=== PATIENT | female | born 1995 | race Hispanic/Latino ===

== ENCOUNTER 2019-09-03 18:32 | Inpatient (IN) | payer OTHER, SELFPAY ==
[2019-09-03] VITALS (12 sets, daily range): BP systolic 112–124; BP diastolic 46–71; PULSE 77–92; TEMP 36.2–36.9; BMI 41.1
--- NOTE | 2019-09-03 18:48 | WPDANESEPP ---
Anes - Eval Pre Procedure Procedure: Labor Epidural Date/Time: 09/03/19 18:48 Surgeon: Ahsan Preop Diagnosis: Abd pain with contractions Pre Op Diagnosis: Induction Patient Data Age: 24 Gender: F Height: Weight: Allergies Allergy/AdvReac Type Severity Reaction Status Date / Time No Known Allergies Allergy Verified 09/02/19 15:54 Home Medications Medication Instructions Recorded Confirmed Type PNV cmb#95-ferrous fumarate-FA 1 tablet PO DAILY 09/02/19 09/02/19 History [] ergocalciferol (vitamin D2) 1,250 mcg PO 2XW 09/02/19 09/02/19 History [Vitamin D2] insulin NPH isoph U-100 human 16 unit SUBCUT HS 09/02/19 09/02/19 History [Humulin N NPH U-100 Insulin] Patient hx anesthesia problems: none Family hx anesthesia problems: none PMFSH Past Medical History Medical History (Updated 09/03/19 @ 18:50 by Gray Castellanos CRNA) Gestational diabetes Obesity and not yet delivered in third trimester Surgical History Surgical History (Updated 09/03/19 @ 18:50 by Gray Castellanos CRNA) History of tonsillectomy Family History Family History Mother Hypertension Acid reflux Father Diabetes mellitus Social History Social History Smoking status: Never smoker Alcohol intake: never Substance use: never Spiritual care concerns: No Exam Day of Procedure 09/03/19 18:48 Patient weight: obese Airway: Mallampati scale class III Neurological: alert and oriented
[2019-09-03 19:17] LABS: Glucose Point of Care 97 (65-105)
[2019-09-03 19:20] LABS: Basophils Absolute Auto 0.1 K/mm3 (0.0-0.1); Basophils Percent Auto 0.5 % (0.2-1.2); Eosinophils Percent Auto 0.2 % (0-4.4); Hematocrit 34.7 % (37.0-47.0); Immature Granulocyte Absolute 0.03 K/mm3 (0.00-0.031); Immature Granulocyte Percent A 0.3 % (0-0.5); Lymphocytes Absolute Auto 1.15 K/mm3 (0.9-3.2); Lymphocytes Percent Auto 11.6 % (18.3-44.2); Mean Corpuscular HGB Conc 34.6 g/dl (32-36); Mean Corpuscular Hemoglobin 30.2 pg (26-34); Mean Corpuscular Volume 87.4 fl (80-100); Mean Platelet Volume 10.8 fl (7.4-10.4); Monocytes Absolute Auto 0.5 K/mm3 (0.1-0.6); Monocytes Percent Auto 5.2 % (2.6-8.5); Neutrophils Absolute Auto 8.2 K/mm3 (1.3-6.7); Neutrophils Percent Auto 82.2 % (45.5-73.1); Platelet Count Result 270 k/mm3 (150-375); Red Blood Count 3.97 M/mm3 (4.2-5.4); Red Cell Distribution Width 12.7 % (11.5-14.5); White Blood Count 9.9 K/mm3 (4.5-10.0)
--- NOTE | 2019-09-03 19:50 | LDADM ---
This patient, Fidelia Fisher, was admitted to Labor/Delivery/Recovery 102 on 09/03/19 at 18:32. Plans for labor, pain management and were discussed with patient. Patient/family oriented to hospital policies and general routines including ID bracelet, bed and alarms, visiting hours, pain management, procedures, bathroom and other care routines, personal items, smoking policy, room service/diet and guest tray routines, security routines, and visiting hours. Patient/Family are encouraged to report perceived risks to care and to ask questions if they do not understand what they are told or what they should do. See OBIX for further documentation.
[2019-09-03] MEDS: DINOPROSTONE 10 MG VAG INSERT VAGINAL (20:25)
[2019-09-03 22:51] LABS: Glucose Point of Care 78 (65-105)
[2019-09-04] VITALS (150 sets, daily range): BP systolic 74–139; BP diastolic 38–111; PULSE 52–99; RESP 18; TEMP 36.1–37.7; O2SAT 96–100
[2019-09-04 03:03] LABS: Glucose Point of Care 89 (65-105)
[2019-09-04 07:13] LABS: Glucose Point of Care 80 (65-105)
[2019-09-04 07:19] LABS: Rapid Plasma Reagin Non-Reactive (NonReactive)
[2019-09-04] MEDS: LACTATED RINGERS 1,000 ML 125 ML IV CONT ×2 (08:48→10:37)
[2019-09-04] MEDS: OXYTOCIN 30 UNITS/NS 500 ML 30 UNITS/500 ML BAG 6 UNITS IV CONT (08:54)
--- NOTE | 2019-09-04 09:10 | WPDOBADMIT ---
Obstetrics - Admit Note Admission Note: record reviewed. No pertinent additions to the history and/or any subsequent changes in the physical findings that are not consistent with the expected course of the were found. Additions to the history and/or subsequent changes in the physical findings follow. Here for MIL. cervix /0 post cervadil. AROM with clear fluid. FHTs reactive
--- NOTE | 2019-09-04 11:21 | WPDANESEPP ---
Anes - Eval Pre Procedure Procedure: labor epidural Date/Time: 09/04/19 11:21 Pre Op Diagnosis: Induction Patient Data Age: 24 Gender: F Height: 1.73 m Weight: 122.5 kg Last Vital Signs Temp 37.7 C H 09/04/19 10:30 Pulse 60 09/04/19 11:18 BP 129/62 09/04/19 11:18 Pulse Ox 98 09/04/19 11:19 Allergies Allergy/AdvReac Type Severity Reaction Status Date / Time No Known Allergies Allergy Verified 09/02/19 15:54 Home Medications Medication Instructions Recorded Confirmed Type PNV cmb#95-ferrous fumarate-FA 1 tablet PO DAILY 09/02/19 09/03/19 History [] ergocalciferol (vitamin D2) 1,250 mcg PO 2XW 09/02/19 09/03/19 History [Vitamin D2] insulin NPH isoph U-100 human 16 unit SUBCUT HS 09/02/19 09/03/19 History [Humulin N NPH U-100 Insulin] Laboratory Tests 09/03/19 09/03/19 09/03/19 19:10 19:11 19:11 WBC 9.9 K/mm3 K/mm3 (4.5-10.0) RBC 3.97 M/mm3 L M/mm3 (4.2-5.4) Hgb 12.0 g/dL g/dL (12.0-15.0) Hct 34.7 % L % (37.0-47.0) MCV 87.4 fl fl (80-100) MCH 30.2 pg pg (26-34) MCHC 34.6 g/dl g/dl (32-36) RDW 12.7 % % (11.5-14.5) Plt Count 270 k/mm3 k/mm3 (150-375) MPV 10.8 fl H fl (7.4-10.4) Immature Gran % (Auto) 0.3 % % (0-0.5) Neut % (Auto) 82.2 % H % (45.5-73.1) Lymph % (Auto) 11.6 % L % (18.3-44.2) Price % (Auto) 5.2 % % (2.6-8.5) Eos % (Auto) 0.2 % % (0-4.4) Baso % (Auto) 0.5 % % (0.2-1.2) Lymph # (Auto) 1.15 K/mm3 K/mm3 (0.9-3.2) Price # (Auto) 0.5 K/mm3 K/mm3 (0.1-0.6) Eos # (Auto) 0.0 K/mm3 K/mm3 (0-0.3) Baso # (Auto) 0.1 K/mm3 K/mm3 (0.0-0.1) Abs Immat Gran (auto) 0.03 K/mm3 K/mm3 (0.00-0.031) Absolute Neuts (auto) 8.2 K/mm3 H K/mm3 (1.3-6.7) Absolute Nucleated RBC 0.0 K/mm3 K/mm3 (0.0-0.012) Nucleated RBC % 0.0 % % (0.0-0.2) POC Capillary Glucose 97 mg/dl mg/dl (65-105) RPR Non-reactive (NonReactive) Blood Type Antibody Screen 09/03/19 09/03/19 09/04/19 19:11 22:46 02:57 WBC RBC Hgb Hct MCV MCH MCHC RDW Plt Count MPV Immature Gran % (Auto) Neut % (Auto) Lymph % (Auto) Price % (Auto) Eos % (Auto) Baso % (Auto) Lymph # (Auto) Price # (Auto) Eos # (Auto) Baso # (Auto) Abs Immat Gran (auto) Absolute Neuts (auto) Absolute Nucleated RBC Nucleated RBC % POC Capillary Glucose 78 mg/dl mg/dl 89 mg/dl mg/dl (65-105) (65-105) RPR Blood Type O Positive Antibody Screen Negative 09/04/19 07:05 WBC RBC Hgb Hct MCV MCH MCHC RDW Plt Count MPV Immature Gran % (Auto) Neut % (Auto) Lymph % (Auto) Price % (Auto) Eos % (Auto) Baso % (Auto) Lymph # (Auto) Price # (Auto) Eos # (Auto) Baso # (Auto) Abs Immat Gran (auto) Absolute Neuts (auto) Absolute Nucleated RBC Nucleated RBC % POC Capillary Glucose 80 mg/dl mg/dl (65-105) RPR Blood Type Antibody Screen Patient hx anesthesia problems: none Family hx anesthesia problems: none PMFSH Past Medical History Medical History Gestational diabetes Obesity and not yet delivered in third trimester Surgical History Surgical History History of tonsillectomy Fami
[2019-09-04 11:25] LABS: Glucose Point of Care 95 (65-105)
[2019-09-04 15:05] LABS: Glucose Point of Care 76 (65-105)
--- NOTE | 2019-09-04 16:34 | PM.OBPRVD ---
OB - Delivery Note Procedure Delivery date: 09/04/19 Procedure: events: Gestational Diabetes (A2) and Labor Induction Intrapartal events: None Induction method: AROM, per pitocin protocol and other (cervadil) Delivery monitor: external FHT and external uterine Route of delivery: Laceration description: Perineal - 2nd Degree Delivery repair: vicryl (3-0) Specimen: No Estimated blood loss (mL): 500 Anesthesia type: Epidural Disposition: floor [place] Baby Weeks of gestation at delivery: 39 Infant gender: Female Weight (pounds): 5 Weight (ounces): 15 presentation: vertex Placenta delivery description: Spontaneous cord vessel description: 3 Vessels score one minute: 9 score five minutes: 9
--- NOTE | 2019-09-04 16:35 | PM.OBDSVD ---
DS: Diagnosis Discharge Diagnosis (1) 39 weeks gestation of : Code(s): Z3A.39 - 39 weeks gestation of Status: Acute (2) GDM, class A2: Code(s): O24.419 - Gestational diabetes mellitus in , unspecified control Status: Acute Assessment and Plan: Plan 2 hour GTT at 6 wk (3) (normal spontaneous vaginal delivery): Code(s): O80 - Encounter for full-term uncomplicated delivery Status: Acute OB - DS: Summary OB Procedures : NST and Ultrasound OB Procedures Intrapartum: Spontaneous Vag Delivery OB Procedures: : None Peripartum Data Infant Delivery Method: Natural Vaginal Laceration description: Perineal - 2nd Degree complications: none Status at Discharge Functional status at discharge: independent ambulation Overall status at discharge: patient is back to baseline Time Spent with Patient Time attestation: Total time spent providing and/or coordinating discharge services: DS: Data Data Completed and Pending Labs on day of discharge: Labs from last 24 hours 09/04/19 09/04/19 09/04/19 14:54 11:19 07:05 WBC RBC Hgb Hct MCV MCH MCHC RDW Plt Count MPV Immature Gran % (Auto) Neut % (Auto) Lymph % (Auto) [place] % (Auto) Eos % (Auto) Baso % (Auto) Lymph # (Auto) [place] # (Auto) Eos # (Auto) Baso # (Auto) Abs Immat Gran (auto) Absolute Neuts (auto) Absolute Nucleated RBC Nucleated RBC % POC Capillary Glucose 76 95 80 RPR Blood Type Antibody Screen 09/04/19 09/03/19 09/03/19 02:57 22:46 19:11 WBC RBC Hgb Hct MCV MCH MCHC RDW Plt Count MPV Immature Gran % (Auto) Neut % (Auto) Lymph % (Auto) [place] % (Auto) Eos % (Auto) Baso % (Auto) Lymph # (Auto) [place] # (Auto) Eos # (Auto) Baso # (Auto) Abs Immat Gran (auto) Absolute Neuts (auto) Absolute Nucleated RBC Nucleated RBC % POC Capillary Glucose 89 78 RPR Blood Type O Positive Antibody Screen Negative 09/03/19 09/03/19 09/03/19 19:11 19:11 19:10 WBC 9.9 RBC 3.97 L Hgb 12.0 Hct 34.7 L MCV 87.4 MCH 30.2 MCHC 34.6 RDW 12.7 Plt Count 270 MPV 10.8 H Immature Gran % (Auto) 0.3 Neut % (Auto) 82.2 H Lymph % (Auto) 11.6 L [place] % (Auto) 5.2 Eos % (Auto) 0.2 Baso % (Auto) 0.5 Lymph # (Auto) 1.15 [place] # (Auto) 0.5 Eos # (Auto) 0.0 Baso # (Auto) 0.1 Abs Immat Gran (auto) 0.03 Absolute Neuts (auto) 8.2 H Absolute Nucleated RBC 0.0 Nucleated RBC % 0.0 POC Capillary Glucose 97 RPR Non-reactive Blood Type Antibody Screen Discharge Plan Discharge Attending physician on discharge: Lottie Foreman Discharging Clinician: Lottie Foreman Anticipated Discharge Date/Time: 09/06/19 09:36 Patient Disposition: Home, Self-Care Activity: pelvic rest Diet: regular Patient Instructions: Antibiotic Form Stand Alone Forms: General Discharge Information Follow-up/Referrals: Lottie Foreman MD [Physician] - 6 Weeks Discharge Medications: Continued ergocalciferol (vitamin D2) [Vitamin D2] 1,250 mcg (50,000 unit) Capsule 1,250 mcg PO 2XW RF: 0 PNV cmb#95-ferrous fumarate-FA [] 28 mg iron- 800 mcg Tablet 1 tablet PO DAILY RF: 0 Discontinued Humulin N NPH U-100 Insulin 100 unit/mL Suspension 16 unit SUBCUT HS RF: 0 Date of admission: 09/03/19 18:32 Primary Care Provider: SabaLiliana Admitting Provider: Lottie Foreman Attending physician on admission: Lottie Foreman Condition: Stable Care Plan Goals: PLANS MIRENA at wk 10
[2019-09-04] MEDS: OXYTOCIN 30 UNITS/NS 500 ML 30 UNITS/500 ML BAG 125 UNITS IV CONT (16:51)
[2019-09-04] MEDS: IBUPROFEN 600 MG TABLET PO (17:50)
[2019-09-04] MEDS: WITCH HAZEL 40 PADS 1 PAD TOPICAL (20:21)
[2019-09-04] MEDS: BENZOCAINE 20% AER SPR (*SP) 56 GM CAN 1 SPRAY TOPICAL (20:21)
--- NOTE | 2019-09-04 20:26 | PC.NURSE ---
Patient transferred to post room #284 via wheel chair. Support person present. Oriented to unit, room, information board, rooming in, admission packet and security measures. Patient verbalizes understanding.
[2019-09-04] MEDS: ACETAMINOPHEN 325 MG TABLET 650 MG PO (21:33)
[2019-09-05] MEDS: IBUPROFEN 600 MG TABLET PO ×3 (04:19→17:31)
[2019-09-05 05:39] LABS: Hematocrit 27.4 % (37.0-47.0); Hemoglobin 9.2 g/dL (12.0-15.0)
[2019-09-05 09:05] VITALS: BP 125/61; PULSE 87; RESP 18; TEMP 36.6
[2019-09-05] MEDS: MULTIVIT/MIN/PREN/FOL AC/IRON TABLET 1 TAB PO (09:59)
[2019-09-05] MEDS: POLYSACCHARIDE IRON COMPLEX 150 MG CAPSULE PO ×2 (09:59→17:32)
[2019-09-05] MEDS: DOCUSATE SODIUM 100 MG CAPSULE PO ×2 (09:59→17:31)
--- NOTE | 2019-09-05 10:35 | PM.OBPNVD ---
OB - PN: Subj Subjective Date/time seen: 09/05/19 10:35 Patient comments: no complaints baby status: doing well OB - PN: Obj Data Labs CBC & Chem 7: 09/05/19 04:26 Labs: Laboratory Results - last 24 hr 09/04/19 09/04/19 09/05/19 11:19 14:54 04:26 Hgb 9.2 L Hct 27.4 L POC Capillary Glucose 95 76 OB - PN A/P Plan day: 1 Plan: routine care Comments: Plans Mirena Time Spent With Patient Time: Total time spent is greater than 50% in coordination of care (as documented) at patient's floor/unit and/or counseling patient: Exam : Bimanual exam- vagina & uterus: other (Uterus firm, nt @U)
--- NOTE | 2019-09-05 17:36 | WPDANLDPN2 ---
Anes-Prog Note L&D Date/Time: 09/05/19 17:36 Comfortable throughout: labor and delivery Neuraxial method: epidural Epidural/Spinal procedure site: clean & non-tender Neuro status: Neuro function grossly intact. Cardiovascular status: normal Respiratory status: normal Airway patency: baseline Mental status: baseline Post-Op hydration status: normal Vital Signs: Last Vital Signs Temp 36.6 C 09/05/19 09:05 Pulse 87 09/05/19 09:05 Resp 18 09/05/19 09:05 BP 125/61 09/05/19 09:05 Pulse Ox 100 09/04/19 20:50 I/O: Intake & Output 09/05/19 09/05/19 09/05/19 07:59 15:59 23:59 Intake Total 240 Balance 240 Post-procedural complaints: none Patient feedback: Patient satisfied with anesthetic care.
[2019-09-05 18:40] VITALS: BP 112/65; PULSE 91; RESP 18; TEMP 36.2; O2SAT 100
[2019-09-05] MEDS: ACETAMINOPHEN 325 MG TABLET 650 MG PO (23:52)
[2019-09-06] MEDS: DOCUSATE SODIUM 100 MG CAPSULE PO (08:49)
[2019-09-06 08:50] VITALS: BP 109/66; PULSE 82; RESP 16; TEMP 36.3
[2019-09-06] MEDS: IBUPROFEN 600 MG TABLET PO (08:50)
[2019-09-06] MEDS: POLYSACCHARIDE IRON COMPLEX 150 MG CAPSULE PO (08:50)
[2019-09-06] MEDS: MULTIVIT/MIN/PREN/FOL AC/IRON TABLET 1 TAB PO (08:50)
--- NOTE | 2019-09-06 09:35 | PM.OBPNVD ---
OB - PN: Subj Subjective Date/time seen: 09/06/19 09:35 Patient comments: no complaints and pain well controlled baby status: doing well OB - PN: Obj Data Labs CBC & Chem 7: 09/05/19 04:26 OB - PN A/P Plan day: 2 Plan: routine care, discharge home, follow up 6 weeks and other (Plans Mirena IUD) Time Spent With Patient Time: Total time spent is greater than 50% in coordination of care (as documented) at patient's floor/unit and/or counseling patient: Exam : Bimanual exam- vagina & uterus: other (Uterus firm, nt @U)
--- NOTE | 2019-09-06 10:32 | PC.NURSE ---
Patient viewed the discharge video Mother & Baby Care, The First Two Weeks . Patient was given the opportunity and encouraged to ask questions. Patient verbalized understanding of information shared and has been given the mother/baby guide for home reference.
== END 2019-09-06 14:13 | disposition home or self-care (01) | DRG 560 ==
LOC: ANHLDR 09-04 16:37 → ANHOB2 09-04 22:06
PROVIDERS: Admitting Provider Obstetrics & Gynecology Gynecology; PCP Physician Assistant; Visit Provider Obstetrics & Gynecology Gynecology
DX: O24.429 Gestational diabetes mellitus in childbirth, unspecified control (principal); O70.1 Second degree perineal laceration during delivery; O99.214 Obesity complicating childbirth; E66.01 Morbid (severe) obesity due to excess calories; Z3A.39 39 weeks gestation of pregnancy; Z37.0 Single live birth
CPT/HCPCS: 36415; 85014; 85018; 85025; 86592; 86850; 86900; 86901; A9270; J2590; J2795; J3010; J7120

== ENCOUNTER 2020-03-29 16:36 | Emergency (ER) | payer OTHER, SELFPAY ==
--- NOTE | ~2020-03-29 | XR_ITS ---
EXAMINATION: XR hand RT min 3V DATE: 03/29/2020 17:00 INDICATION: Right hand pain. Fall. TECHNIQUE: 3 views of right hand were obtained. COMPARISON: Right hand radiographs 04/25/2016 FINDINGS: Bone alignment is normal. No fracture. Joint spaces are well maintained. IMPRESSION: 1. Normal right hand. Reviewed, dictated and finalized at location A. ICAL TEAM MANAGER IMPRESSION: 1. Normal right hand.
--- NOTE | 2020-03-29 16:40 | ED.GENADULT ---
HPI - General Adult General Chief complaint: Extremity Injury, Upper Stated complaint: Right wrist pain Time Seen by Provider: 03/29/20 16:40 Source: patient Mode of arrival: ambulatory Limitations: no limitations History of Present Illness HPI narrative: 24-year-old female patient presents to the [facility] with complaints of right wrist and hand pain. Patient states that she was mopping today and slipped and fell and used her right hand to try and brace her fall. Patient states that she fell on tile but denies hitting her head or loss of consciousness. Patient states she did take some Tylenol for pain prior to arrival. Related Data Home Medications Medication Instructions Recorded Confirmed ergocalciferol (vitamin D2) 1,250 mcg PO 2XW 09/02/19 09/03/19 [Vitamin D2] Allergies Allergy/AdvReac Type Severity Reaction Status Date / Time No Known Allergies Allergy Verified 03/29/20 16:50 Review of Systems Review of Systems: Narrative: CONSTITUTIONAL: Denies fever, chills, or sweats. EYES: Denies visual changes, redness, or discharge. ENT: Denies rhinorrhea, congestion, sore throat, or otalgia. CARDIOVASCULAR: Denies chest pain, palpitations, or edema. RESPIRATORY: Denies cough or dyspnea. GASTROINTESTINAL: Denies abdominal pain, nausea, vomiting, or diarrhea. GENITOURINARY: Denies dysuria or hematuria. SKIN: Denies rash or itching. MUSCULOSKELETAL: Denies back pain, joint pain, or myalgia. Positive right wrist pain status post fall today NEUROLOGIC: Denies headache, numbness, or weakness. PSYCHIATRIC: Denies anxiety or depression. [facility] Past Medical History Medical History (Updated 03/29/20 @ 17:10 by KENROY Westbrook) Gestational diabetes Obesity and not yet delivered in third trimester Surgical History Surgical History History of tonsillectomy Family History Family History Mother Hypertension Acid reflux Father Diabetes mellitus Social History Social History Smoking status: Never smoker Second hand tobacco smoke exposure: No Alcohol intake: never Substance use: never Gender identity (if verbalized by the patient): Female Spiritual care concerns: No Comments My parents Exam Narrative: Exam Narrative: GENERAL: Well-appearing, well-nourished, and in no acute distress. HEAD: Normocephalic, atraumatic. EYES: PERRLA and EOMI. ENT: Nares clear, no rhinorrhea or epistaxis. Mucous membranes moist. NECK: Supple. No lymphadenopathy CHEST: Clear to auscultation. No respiratory distress. HEART: Regular rate and rhythm. No murmur heard. Normal peripheral pulses. ABDOMEN: Soft, nontender, nondistended, normal active bowel sounds. EXTREMITIES: The R wrist is without obvious asymmetry or deformity when compared to the L wrist. No surface trauma, open wounds, swelling, or obvious deformity. No overlying erythema or warmth. No bony crepitus. scaphoid fullness in tenderness to direct palpation and axial load. Normal flex/extension, but does complain of pain with flexion no pain with extension. No pain with ulnar/radial deviation. Patient states she does feel some numbness to the right middle and ring finger but she does have good range of motion of all fingers including good sensation. Ulnar and radial pulses intact. SKIN: Warm, dry, no rash. NEURO: No focal deficits. Alert and oriented x3. Course Reevaluation(s) Reevaluation #1: Reevaluated patient after her x-ray resulted. Notified her that her x-ray is negative for any fractures. Discussed with her she most likely sprained her wrist and therefore we will go ahead and wrap her with an [place] wrap and discharge her home. She can take Tylenol, ibuprofen and continue to use the ice to the wrist to help with pain and swelling. Patient verbalized understanding denies any othe
[2020-03-29 16:44] VITALS: BP 149/95; PULSE 87; RESP 16; TEMP 36.8; O2SAT 100
== END 2020-03-29 17:12 | disposition home or self-care (01) ==
PROVIDERS: Emergency Provider Nurse Practitioner Family; PCP Physician Assistant
DX: S63.501A Unspecified sprain of right wrist, initial encounter (principal); W01.0XXA Fall on same level from slipping, tripping and stumbling without subsequent striking against object, initial encounter; E66.9 Obesity, unspecified; Z68.41 Body mass index [BMI] 40.0-44.9, adult
CPT/HCPCS: 73130; 99213; G0463

== ENCOUNTER 2020-05-01 10:52 | Emergency (ER) | payer OTHER, SELFPAY ==
--- NOTE | ~2020-05-01 | CT_ITS ---
EXAMINATION: CTA chest PE protocol EXAM DATE: 05/01/2020 12:26 INDICATION: Mid chest pain. Shortness of breath. TECHNIQUE: Spiral CTA of the chest (pulmonary arteries) was performed with 100 cc Omnipaque 350 intr avenous contrast injection. Images were acquired during the pulmonary arterial phase. Coronal maxi mum intensity projection 3D-reconstructions were created by the technologist on dedicated workstation . Axial, coronal and sagittal reformatted images were reviewed. The dose-length product (DLP) for t his examination was 981.81 mGy-cm. The exposure was tailored according to patient size (auto mA exp osure control), and iterative reconstruction (ASIR) was used as additional dose reduction technique. There is no prior study for comparison. FINDINGS: Pulmonary arteries are well opacified and without intraluminal filling defects. No thora cic aortic dissection. The lungs are clear. There are no pleural or pericardial effusions. Trach eobronchial tree is patent. There is no mediastinal, hilar or axillary lymphadenopathy. There is no pneumothorax. Heart normal in size. No evidence of coronary arterial calcification. Upper abd omen is unremarkable. The bones are unremarkable. IMPRESSION: Normal CT pulmonary exam. Reviewed, dictated and finalized at location A. INATION BUILDING INSPECTOR IMPRESSION: Normal CT pulmonary exam.
--- NOTE | ~2020-05-01 | XR_ITS ---
EXAMINATION: XR chest 2V EXAM DATE: 05/01/2020 11:25 INDICATION: Chest pain, shortness of breath and headache. TECHNIQUE: Frontal and lateral projections of the chest obtained and reviewed. There is no prior [place] for comparison. FINDINGS: The lungs are clear. There are no pleural effusions. The cardiomediastinal silhouette is within normal limits. There is no pneumothorax suspected. The bones and soft tissues are unremarkab le. IMPRESSION: No acute cardiopulmonary findings. Reviewed, dictated and finalized at location A. K WASHER
[2020-05-01 10:55] VITALS: BP 146/79; PULSE 107; RESP 16; TEMP 36.3; O2SAT 99
[2020-05-01 10:59] VITALS: PULSE 105
--- NOTE | 2020-05-01 10:59 | ECG_ITS ---
Measurements Intervals [place] Rate: 102 P: 34 NM: 131 QRS: 37 QRSD: 82 T: 7 QT: 326 QTc: 425 Interpretive Statements SINUS TACHYCARDIA BORDERLINE T WAVE ABNORMALITY- INFERIOR LEADS BASELINE ARTIFACT- I, II, III, AVR, AVL, AVF, V1-V4 BORDERLINE ECG Electronically Signed On 05-01-2020 15:06:58 AXLE INSPECTOR by José Johnston D.O.
--- NOTE | 2020-05-01 11:00 | ED.CHESTPAIN ---
HPI - Chest Pain General Chief Complaint: Chest Pain Stated Complaint: cp, sob Time Seen by Provider: 05/01/20 11:00 Source: patient Mode of arrival: ambulatory Limitations: no limitations History of Present Illness HPI narrative: Patient is a 24-year-old female who presents for evaluation of chest pain and shortness of breath. Patient states she has had a 1 week history of worsening, intermittent chest pain as dull and aching in nature over the center of her chest. She states it is worse when she takes a deep breath. No shortness of breath currently. She denies fever, chills, no recent Covid infection. No loss of sense of taste or smell. No jaw pain, shoulder pain, no lower flank pain. No ripping or tearing sensation to the pain. She has a Mirena IUD. No recent long car or air travel. No recent known Covid exposures. No recent heavy lifting. Related Data Home Medications Medication Instructions Recorded Confirmed ergocalciferol (vitamin D2) 1,250 mcg PO 2XW 09/02/19 05/01/20 [Vitamin D2] Allergies Allergy/AdvReac Type Severity Reaction Status Date / Time No Known Allergies Allergy Verified 05/01/20 11:00 Review of Systems Review of Systems: Narrative: CONSTITUTIONAL: Denies fever, chills, or sweats. ENT: Denies rhinorrhea, congestion, sore throat, or otalgia. CARDIOVASCULAR: Reporting chest pain without palpitations or edema RESPIRATORY:Reports dry cough GASTROINTESTINAL: Denies abdominal pain, nausea, vomiting, or diarrhea. GENITOURINARY: Denies dysuria or hematuria. SKIN: Denies rash or itching. MUSCULOSKELETAL: Denies back pain, joint pain, or myalgia. NEUROLOGIC: Denies headache, numbness, or weakness. [facility] Past Medical History Medical History Gestational diabetes Obesity and not yet delivered in third trimester Surgical History Surgical History History of tonsillectomy Family History Family History Mother Hypertension Acid reflux Father Diabetes mellitus Social History Social History Smoking status: Never smoker Second hand tobacco smoke exposure: No Alcohol intake: never Substance use: never Gender identity (if verbalized by the patient): Female Spiritual care concerns: No Exam Narrative: Exam Narrative: GENERAL: Awake, alert, conversant HEAD: Normocephalic, atraumatic. EYES: PERRLA and EOMI. ENT: Nares clear, no rhinorrhea or epistaxis. Mucous membranes moist. NECK: Supple. CHEST: No respiratory distress, breathing even and non labored, coarse respirations on the left, no wheezing, no crackles, mild anterior chest wall pain HEART: Mildly tachycardic rate, sinus rhythm ABDOMEN:Non distended, non tender EXTREMITIES: Normal range of motion. No edema. SKIN: Warm, dry, no rash. NEURO:No focal deficits. Alert and oriented x3 Course Vital Signs Vital signs: Vital Signs Temperature 36.3 C L 05/01/20 10:55 Pulse Rate 107 H 05/01/20 10:55 Respiratory Rate 16 05/01/20 10:55 Blood Pressure 146/79 H 05/01/20 10:55 Pulse Oximetry 99 05/01/20 10:55 Temperature 36.3 C L 05/01/20 10:55 Pulse Rate 93 05/01/20 12:51 Respiratory Rate 23 H 05/01/20 12:51 Blood Pressure 106/60 05/01/20 12:51 Pulse Oximetry 98 05/01/20 12:51 MDM - Chest Pain MDM Narrative Medical decision making narrative: Patient presented for evaluation of centralized chest pain. At the time of assessment, ABCs are intact and vital signs are stable. No murmur appreciated on exam. No friction rubs. Patient does have mildly left coarse breath sounds, no crackles. No calf pain, erythema or edema on exam. Patient's EKG and labs are without significant high risk changes. Cardiac risk factors reviewed. Patient is felt low risk for ACS and reasonable fo
[2020-05-01] MEDS: ASPIRIN 81 MG CHEWABLE TABLET 324 MG PO (11:06)
[2020-05-01 11:16] LABS: Basophils Percent Auto 0.3 % (0.2-1.2); Eosinophils Absolute Auto 0.1 K/mm3 (0-0.3); Eosinophils Percent Auto 0.5 % (0-4.4); Hematocrit 40.1 % (37.0-47.0); Hemoglobin 13.1 g/dL (12.0-15.0); Immature Granulocyte Absolute 0.04 K/mm3 (0.00-0.031); Immature Granulocyte Percent A 0.4 % (0-0.5); Lymphocytes Absolute Auto 1.37 K/mm3 (0.9-3.2); Lymphocytes Percent Auto 13.4 % (18.3-44.2); Mean Corpuscular HGB Conc 32.7 g/dl (32-36); Mean Corpuscular Hemoglobin 26.3 pg (26-34); Mean Corpuscular Volume 80.5 fl (80-100); Mean Platelet Volume 9.7 fl (7.4-10.4); Monocytes Absolute Auto 0.9 K/mm3 (0.1-0.6); Monocytes Percent Auto 8.5 % (2.6-8.5); Neutrophils Absolute Auto 7.9 K/mm3 (1.3-6.7); Neutrophils Percent Auto 76.9 % (45.5-73.1); Platelet Count Result 264 k/mm3 (150-375); Red Blood Count 4.98 M/mm3 (4.2-5.4); Red Cell Distribution Width 16.2 % (11.5-14.5); White Blood Count 10.3 K/mm3 (4.5-10.0)
[2020-05-01 11:25] LABS: INR 0.9; Prothrombin Time 12.5 Seconds (11.1-14.7)
[2020-05-01 11:26] LABS: Partial Thromboplastin Time 30.3 SECONDS (22.3-36.8)
[2020-05-01 11:29] LABS: D Dimer 0.51 ug/mL (<0.48)
[2020-05-01 11:34] LABS: Anion Gap 10 mmol/L (8-16); Blood Urea Nitrogen 8 mg/dL (7-17); Calcium 9.2 mg/dL (8.4-10.2); Carbon Dioxide 24 mmol/L (22-30); Chloride 104 mmol/L (98-107); Estimated CRCL calculation 174 ml/min; Estimated Glomerular Filt Rate > 60; Glucose 112 mg/dL (65-105); Potassium 4.5 mmol/L (3.4-5.0); Sodium 138 mmol/L (137-145)
[2020-05-01 11:40] LABS: Troponin I < 0.012 ng/mL (0.000-0.034)
[2020-05-01 12:05] VITALS: BP 130/74; PULSE 92; RESP 18; O2SAT 98
[2020-05-01 12:51] VITALS: BP 106/60; PULSE 93; RESP 23; O2SAT 98
[2020-05-01 13:29] VITALS: BP 111/76; PULSE 90; RESP 20; O2SAT 98
== END 2020-05-01 13:30 | disposition home or self-care (01) ==
PROVIDERS: Emergency Provider Emergency Medicine; PCP Physician Assistant
DX: R07.89 Other chest pain (principal); Z97.5 Presence of (intrauterine) contraceptive device; E66.9 Obesity, unspecified; Z68.41 Body mass index [BMI] 40.0-44.9, adult
CPT/HCPCS: 36415; 71046; 71275; 80048; 81025; 84484; 85025; 85380; 85610; 85730; 93005; 99284; A9270; Q9967

== ENCOUNTER 2020-05-24 13:24 | Emergency (ER) | payer OTHER, SELFPAY ==
--- NOTE | ~2020-05-24 | CT_ITS ---
EXAMINATION: CT abdomen pelvis wo con DATE: 05/24/2020 14:54 INDICATION: Flank pain TECHNIQUE: Computed tomography (CT) of the abdomen and pelvis was performed without intravenous contr ast. Automated exposure control and iterative reconstruction technique were employed. The dose-length product was 1587.11 mGy-cm. COMPARISON: None FINDINGS: Multiple small patchy groundglass opacities in the posterior basilar right lower lobe most consistent with pneumonia. Heart size is normal. No pericardial or pleural effusion. Liver, gallbladder, spleen , pancreas, bilateral adrenal glands and kidneys are normal. No urolithiasis or hydronephrosis. Tiny calcified appendicolith within the normal-appearing appendix with no appendiceal inflammatory change to suggest acute appendicitis. No abnormal bowel wall thickening or obstruction. Bladder is normal. I UD in expected position within the anteverted uterus. Likely small bilateral ovarian follicles, the l arger on the left measuring approximately 2 cm. No free intraperitoneal gas or fluid. No pathological ly enlarged abdominal or pelvic lymphadenopathy. Mild lumbar spondylosis. IMPRESSION: 1. No urolithiasis or acute intra-abdominal/pelvic process. 2. IUD in expected position within the anteverted uterus. Reviewed, dictated and finalized at location A. [employer]
[2020-05-24 13:27] VITALS: BP 117/72; PULSE 95; RESP 20; TEMP 36.7; O2SAT 100
[2020-05-24 13:38] LABS: Basophils Percent Auto 0.4 % (0.2-1.2); Eosinophils Absolute Auto 0.2 K/mm3 (0-0.3); Eosinophils Percent Auto 2.4 % (0-4.4); Hematocrit 41.6 % (37.0-47.0); Hemoglobin 13.5 g/dL (12.0-15.0); Immature Granulocyte Absolute 0.02 K/mm3 (0.00-0.031); Immature Granulocyte Percent A 0.2 % (0-0.5); Lymphocytes Absolute Auto 2.31 K/mm3 (0.9-3.2); Lymphocytes Percent Auto 24.9 % (18.3-44.2); Mean Corpuscular HGB Conc 32.5 g/dl (32-36); Mean Corpuscular Hemoglobin 26.6 pg (26-34); Mean Corpuscular Volume 82.1 fl (80-100); Monocytes Absolute Auto 0.6 K/mm3 (0.1-0.6); Monocytes Percent Auto 6.1 % (2.6-8.5); Neutrophils Absolute Auto 6.1 K/mm3 (1.3-6.7); Platelet Count Result 296 k/mm3 (150-375); Red Blood Count 5.07 M/mm3 (4.2-5.4); Red Cell Distribution Width 16.2 % (11.5-14.5); White Blood Count 9.3 K/mm3 (4.5-10.0)
[2020-05-24 13:50] LABS: Alanine Aminotransferase 23 U/L (4-35); Albumin Level 4.8 g/dL (3.5-5.1); Alkaline Phosphatase 106 U/L (38-126); Anion Gap 8 mmol/L (8-16); Aspartate Amino Transferase 26 U/L (14-36); Bilirubin,Total 0.5 mg/dL (0.2-1.3); Blood Urea Nitrogen 16 mg/dL (7-17); Calcium 9.7 mg/dL (8.4-10.2); Carbon Dioxide 26 mmol/L (22-30); Chloride 106 mmol/L (98-107); Estimated CRCL calculation 129 ml/min; Estimated Glomerular Filt Rate > 60; Glucose 97 mg/dL (65-105); Potassium 4.6 mmol/L (3.4-5.0); Sodium 140 mmol/L (137-145)
[2020-05-24 14:07] LABS: Add Urine Microscopic? YES; Appearance Urine Cloudy (Clear); Bacteria Urine Trace /hpf; Bilirubin Urine Negative (Negative); Blood Urine 2+ (Negative); Color Urine Yellow (Yellow); Glucose Urine UA Negative (Negative); Ketones Urine Negative (Negative); Leukocyte Esterase Ur 1+ LEU/UL (Negative); Mucus Urine Few /lpf; Nitrate Urine Negative (Negative); Protein Urine 1+ mg/dL (Negative); Specific Grav Ur 1.019 (1.001-1.035); Squamous Epithelial Cell Urine Many /hpf (Few); Urobilinogen Urine Negative mg/dL (<2.0)
[2020-05-24 14:28] VITALS: BP 119/71; PULSE 70; RESP 18; O2SAT 100
--- NOTE | 2020-05-24 14:45 | ED.GENADULT ---
HPI - General Adult General Chief complaint: Back Pain/Injury Stated complaint: right flank pain Time Seen by Provider: 05/24/20 13:27 Source: patient Mode of arrival: ambulatory Limitations: no limitations History of Present Illness HPI narrative: Patient presents with chief complaint of right flank pain that began a few days after May 04 with her her family were diagnosed with Covid. Patient states that she saw her primary care about her symptoms that she was instructed to take ibuprofen for the discomfort as I thought that it was related. Patient states the ibuprofen did seem to help for a while but a few days ago the pain came back and became more intense and began radiating into her right groin. Patient states she does not have a history of kidney stones. She denies any fevers or vomiting. Patient states that when the pain began radiating into her groin today she became concerned and felt that she needed to have it further evaluated. Related Data Home Medications Medication Instructions Recorded Confirmed ergocalciferol (vitamin D2) 1,250 mcg PO 2XW 09/02/19 05/01/20 [Vitamin D2] Allergies Allergy/AdvReac Type Severity Reaction Status Date / Time No Known Allergies Allergy Verified 05/24/20 14:21 Review of Systems Review of Systems: Narrative: CONSTITUTIONAL: Denies fever, chills, or sweats. EYES: Denies visual changes, redness, or discharge. ENT: Denies rhinorrhea, congestion, sore throat, or otalgia. CARDIOVASCULAR: Denies chest pain, palpitations, or edema. RESPIRATORY: Denies cough or dyspnea. GASTROINTESTINAL: Denies abdominal pain, nausea, vomiting, or diarrhea. GENITOURINARY: Reports right flank pain denies dysuria or hematuria. SKIN: Denies rash or itching. MUSCULOSKELETAL: Denies back pain, joint pain, or myalgia. NEUROLOGIC: Denies headache, numbness, dizziness, or weakness. PSYCHIATRIC: Denies anxiety or depression. [facility] Past Medical History Medical History (Updated 05/24/20 @ 16:00 by Rad Lee PA-C) Gestational diabetes Obesity and not yet delivered in third trimester Surgical History Surgical History History of tonsillectomy Family History Family History Mother Hypertension Acid reflux Father Diabetes mellitus Social History Social History Smoking status: Never smoker Second hand tobacco smoke exposure: No Alcohol intake: never Substance use: never Gender identity (if verbalized by the patient): Female Spiritual care concerns: No Exam Narrative: Exam Narrative: GENERAL: Well-appearing, well-nourished, appears mildly uncomfortable. HEAD: Normocephalic, atraumatic. EYES: PERRLA and EOMI. NECK: Supple. No adenopathy or masses. CHEST: Clear to auscultation. No respiratory distress. No wheezes rales or rhonchi HEART: Regular rate and rhythm. No murmur heard. Normal peripheral pulses. ABDOMEN: No CVA tenderness. Soft, nontender, nondistended, normal active bowel sounds. EXTREMITIES: Normal range of motion. No edema. SKIN: Warm, dry, no rash. NEURO: No focal deficits. Alert and oriented x3. PSYCH: Normal mood and affect. Course Vital Signs Vital signs: Vital Signs Temperature 98.0 F 05/24/20 13:27 Pulse Rate 95 05/24/20 13:27 Respiratory Rate 20 05/24/20 13:27 Blood Pressure 117/72 05/24/20 13:27 Pulse Oximetry 100 05/24/20 13:27 Temperature 98.0 F 05/24/20 13:27 Pulse Rate 73 05/24/20 16:24 Respiratory Rate 18 05/24/20 16:24 Blood Pressure 119/59 L 05/24/20 16:24 Pulse Oximetry 100 05/24/20 16:24 Medical Decision Making MDM Narrative Medical decision making narrative: Discussed with patient her CT findings are negative. There are findings of covid, but patient was diagnosed with covid in April and is not hypoxic, labs are stable
[2020-05-24] MEDS: MORPHINE SULFATE (*CRX) 4 MG/ML INJ IV PUSH (15:03)
[2020-05-24 16:24] VITALS: BP 119/59; PULSE 73; RESP 18; O2SAT 100
== END 2020-05-24 16:26 | disposition home or self-care (01) ==
PROVIDERS: Physician Assistant; Emergency Provider Emergency Medicine; PCP Physician Assistant
DX: N30.00 Acute cystitis without hematuria (principal); M54.5 Low back pain; Z86.16 Personal history of COVID-19; E66.9 Obesity, unspecified; Z68.41 Body mass index [BMI] 40.0-44.9, adult; Z97.5 Presence of (intrauterine) contraceptive device
CPT/HCPCS: 36415; 74176; 80053; 81001; 81025; 85025; 87086; 87088; 96374; 99284; J2270

== ENCOUNTER 2020-05-27 11:09 | Outpatient (CLI) | payer OTHER, SELFPAY ==
--- NOTE | ~2020-05-27 | XR_ITS ---
EXAMINATION: XR lumbar spine 2-3V DATE: 05/27/2020 11:28 INDICATION: Low back pain TECHNIQUE: Anteroposterior and lateral views of the lumbar spine, and cone-down lateral view of the l umbosacral junction were obtained. COMPARISON: 05/24/2020 FINDINGS: There is moderate loss of intervertebral disc space height at L5-S1 with associated posteri or osteophytes.. There is no fracture.. The vertebral body heights and alignment are normal. An IUD i s noted. The bowel gas pattern is normal. IMPRESSION: 1. Mild lumbar spondylosis at L5-S1. Reviewed, dictated and finalized at location A. RANDUM STATEMENT CLERK
== END 2020-05-27 11:10 | disposition home or self-care (01) ==
PROVIDERS: PCP Physician Assistant; Visit Provider Physician Assistant
DX: M47.816 Spondylosis without myelopathy or radiculopathy, lumbar region (principal)
CPT/HCPCS: 72100

== ENCOUNTER 2020-12-31 14:23 | Emergency (ER) | payer OTHER, SELFPAY ==
[2020-12-31 14:30] VITALS: BP 119/74; PULSE 88; RESP 18; TEMP 35.9; O2SAT 100
--- NOTE | 2020-12-31 14:46 | ED.GENADULT ---
HPI - General Adult General Chief complaint: Urogenital-Female Stated complaint: back pain Time Seen by Provider: 12/31/20 14:46 Source: patient Mode of arrival: ambulatory Limitations: no limitations History of Present Illness HPI narrative: 25-year-old female patient presents to the [facility] with complaints of right-sided flank pain x9 days. Denies fever, body aches or chills. Denies any nausea, vomiting or diarrhea. Denies any low back pain. Patient states she has had a little bit of urinary frequency but denies pain with urination. Related Data Home Medications Medication Instructions Recorded Confirmed levonorgestrel [Mirena] 1 insert INTRAUTERINE ONCE 12/31/20 12/31/20 Allergies Allergy/AdvReac Type Severity Reaction Status Date / Time No Known Allergies Allergy Verified 12/31/20 14:45 Review of Systems Review of Systems: CONSTITUTIONAL: Denies fever, chills, or sweats. EYES: Denies visual changes, redness, or discharge. ENT: Denies rhinorrhea, congestion, sore throat, or otalgia. CARDIOVASCULAR: Denies chest pain, palpitations, or edema. RESPIRATORY: Denies cough or dyspnea. GASTROINTESTINAL: Denies abdominal pain, nausea, vomiting, or diarrhea. GENITOURINARY: Positive dysuria, right flank pain, denies hematuria. SKIN: Denies rash or itching. MUSCULOSKELETAL: Denies back pain, joint pain, or myalgia. NEUROLOGIC: Denies headache, numbness, or weakness. PSYCHIATRIC: Denies anxiety or depression. [facility] Past Medical History Medical History (Updated 12/31/20 @ 15:27 by KENROY Westbrook) Gestational diabetes Obesity and not yet delivered in third trimester Surgical History Surgical History History of tonsillectomy Family History Family History Mother Hypertension Acid reflux Father Diabetes mellitus Social History Social History Smoking status: Never smoker Second hand tobacco smoke exposure: No Alcohol intake: never Substance use: never Gender identity (if verbalized by the patient): Female Spiritual care concerns: No Comments At the time of my signature I agree with nursing past medical history, surgical, social, and family history. There is no relevant family history pertinent to the presenting complaint. Exam Narrative: GENERAL: Well-appearing, well-nourished, and in no acute distress. HEAD: Normocephalic, atraumatic. EYES: PERRLA and EOMI. ENT: Nares clear, no rhinorrhea or epistaxis. Mucous membranes moist. NECK: Supple. No lymphadenopathy CHEST: Clear to auscultation. No respiratory distress. HEART: Regular rate and rhythm. No murmur heard. Normal peripheral pulses. ABDOMEN: Soft, nontender, nondistended, normal active bowel sounds. Right-sided CVA tenderness on percussion EXTREMITIES: Normal range of motion. No edema. SKIN: Warm, dry, no rash. NEURO: No focal deficits. Alert and oriented x3. Course Vital Signs Vital signs: Vital Signs Temperature 35.9 C L 12/31/20 14:30 Pulse Rate 88 12/31/20 14:30 Respiratory Rate 18 12/31/20 14:30 Blood Pressure 119/74 12/31/20 14:30 Pulse Oximetry 100 12/31/20 14:30 Temperature 35.9 C L 12/31/20 14:30 Pulse Rate 88 12/31/20 14:30 Respiratory Rate 18 12/31/20 14:30 Blood Pressure 119/74 12/31/20 14:30 Pulse Oximetry 100 12/31/20 14:30 Vital signs reviewed Medical Decision Making Differential Diagnosis Differential Diagnosis: Differential diagnosis: Uncomplicated lower UTI, uncomplicated UTI, pyelonephritis Discussed with patient that her urine is consistent with possible polynephritis as well as her pain. Discussed with her that we will go ahead and start her on antibiotics today and send a urine off for culture. Discussed with patient that if at all her symptoms worsen including low-grade fevers or increas
== END 2020-12-31 15:32 | disposition home or self-care (01) ==
PROVIDERS: Emergency Provider Nurse Practitioner Family
DX: O23.03 Infections of kidney in pregnancy, third trimester (principal); Z3A.00 Weeks of gestation of pregnancy not specified
CPT/HCPCS: 81003; 81025; 87086; 87088; 99213; G0463

== ENCOUNTER 2022-03-15 16:35 | Emergency (ER) | payer OTHER, SELFPAY ==
[2022-03-15 16:52] VITALS: BP 151/79; PULSE 88; RESP 18; TEMP 36.3; O2SAT 99
--- NOTE | 2022-03-15 17:28 | ED.FEMALEGU ---
HPI - Female Genitourinary General Chief complaint: Urogenital-Female Stated complaint: uti Time Seen by Provider: 03/15/22 16:52 Source: patient Mode of arrival: ambulatory Limitations: no limitations History of Present Illness HPI Narrative: Ms. Fisher is a 26-year-old female patient presenting to clinic today with complaints of a possible urinary tract infection. She reports over the last 3 days she has had burning with urination, frequency, and urgency. She has been taking azo. She denies any fever or chills. She denies any flank pain or lower abdominal pain but does have pressure in her bladder Related Data Home Medications Medication Instructions Recorded Confirmed levonorgestrel 20 mcg/24 hours (8 1 insert intrauterine ONCE 12/31/20 03/15/22 yrs) 52 mg intrauterine device (Mirena) Allergies Allergy/AdvReac Type Severity Reaction Status Date / Time No Known Allergies Allergy Verified 03/15/22 17:12 Review of Systems Review of Systems: Pertinent positives per HPI. Patient denies any fever, chills, rash, headache, visual changes, dizziness, cough, runny nose, sore throat, shortness of breath, chest pain, palpitations, nausea, vomiting, diarrhea, constipation, abdominal pain, or any urinary issues. [facility] Past Medical History Medical History Gestational diabetes Obesity and not yet delivered in third trimester Surgical History Surgical History History of tonsillectomy Family History Family History Mother Hypertension Acid reflux Father Diabetes mellitus Social History Social History Smoking status: Never smoker Second hand tobacco smoke exposure: No Alcohol intake: never Substance use: never Gender identity (if verbalized by the patient): Female Spiritual care concerns: No Comments At the time of my signature, I reviewed and agree with the nursing past medical, surgical, social, and family history. There is no relevant family history pertinent to the patient complaint. Exam Narrative: General: Well-developed, obese, in no apparent distress. Head: Normocephalic, atraumatic. Cardio: Regular rate and rhythm, s1 and s2 normal, no murmur appreciated. Resp: Clear to auscultation bilaterally, no rhonchi, rales, wheezing or rubs. Abdomen: Soft, pliable, bowel sounds present in all quadrants, mild tender to palpation over the bladder, no organomegly, no CVAT tenderness. Course Course Emergency Course: Portions of this record may have been created with voice recognition software. Level of Care: Express Care Visit Vital Signs Vital signs: Vital Signs Temperature 36.3 C L 03/15/22 16:52 Pulse Rate 88 03/15/22 16:52 Respiratory Rate 18 03/15/22 16:52 Blood Pressure 151/79 H 03/15/22 16:52 Pulse Oximetry 99 03/15/22 16:52 Oxygen Delivery Room Air 03/15/22 16:52 Temperature 36.3 C L 03/15/22 16:52 Pulse Rate 88 03/15/22 16:52 Respiratory Rate 18 03/15/22 16:52 Blood Pressure 151/79 H 03/15/22 16:52 Pulse Oximetry 99 03/15/22 16:52 Oxygen Delivery Room Air 03/15/22 16:52 Vital signs reviewed MDM - Female Genitourinary MDM Narrative Medical decision making narrative: at the time of visit patient is resting comfortably on the exam table . UA was positive for nitrates, blood, protein, and leukocytes however patient has been taking azo so this is likely skewed. I will go ahead and treat the patient based on her symptoms and give her prescription for Bactrim DS. Supportive measures were discussed with the patient she voiced understanding of discharge instructions and agrees to treatment plan. Urine culture was sent to lab. Differential Diagnosis Differential diagnosis: Like
== END 2022-03-15 17:34 | disposition home or self-care (01) ==
PROVIDERS: Emergency Provider Nurse Practitioner Family; PCP Physician Assistant
DX: N39.0 Urinary tract infection, site not specified (principal); E66.9 Obesity, unspecified; Z68.41 Body mass index [BMI] 40.0-44.9, adult
CPT/HCPCS: 81003; 87077; 87086; 87186; 99213; G0463

== ENCOUNTER 2022-10-13 19:11 | Emergency (ER) | payer OTHER, SELFPAY ==
--- NOTE | 2022-10-13 19:17 | ED.FEMALEGU ---
HPI - Female Genitourinary General Chief complaint: Urogenital-Female Stated complaint: UTI Time Seen by Provider: 10/13/22 19:17 Source: patient Mode of arrival: ambulatory Limitations: no limitations History of Present Illness HPI Narrative: Fidelia is a 27-year-old female patient presenting to the clinic today with complaints of a possible urinary tract infection x3 days. She reports she has been having burning, frequency, and urgency. No known fever or chills. Does have some pain over the bladder but denies any flank pain. Last urine culture was completed in March and was positive for E coli which was resistant to Bactrim but susceptible to Augmentin. Related Data Home Medications Medication Instructions Recorded Confirmed levonorgestrel 21 mcg/24 hours (8 1 insert intrauterine ONCE 12/31/20 03/15/22 yrs) 52 mg intrauterine device (Mirena) Allergies Allergy/AdvReac Type Severity Reaction Status Date / Time No Known Allergies Allergy Verified 03/15/22 17:12 Review of Systems Review of Systems: Pertinent positives per HPI. Patient denies any fever, chills, rash, headache, visual changes, dizziness, cough, runny nose, sore throat, shortness of breath, chest pain, palpitations, nausea, vomiting, diarrhea, constipation, abdominal pain. [facility] Past Medical History Medical History (Updated 10/13/22 @ 19:30 by Huey Bell APRN) Gestational diabetes Obesity and not yet delivered in third trimester Surgical History Surgical History History of tonsillectomy Family History Family History Mother Hypertension Acid reflux Father Diabetes mellitus Social History Social History Smoking status: Never smoker Second hand tobacco smoke exposure: No Alcohol intake: never Substance use: never Gender identity (if verbalized by the patient): Female Spiritual care concerns: No Comments At the time of my signature, I reviewed and agree with the nursing past medical, surgical, social, and family history. There is no relevant family history pertinent to the patient complaint. Exam Narrative: General: Well-developed, obese in no apparent distress. Head: Normocephalic, atraumatic. Cardio: Regular rate and rhythm, s1 and s2 normal, no murmur appreciated. Resp: Clear to auscultation bilaterally, no rhonchi, rales, wheezing or rubs. Abdomen: Soft, pliable, bowel sounds present in all quadrants, mild tender to palpation over the suprapubic bladder, no organomegly, no CVAT tenderness. Course Course Emergency Course: Portions of this record may have been created with voice recognition software. Level of Care: Express Care Visit Vital Signs Vital signs: Vital signs reviewed MDM - Female Genitourinary MDM Narrative Medical decision making narrative: At the time of visit patient is resting on the exam table. Urinalysis was performed and was positive for trace of leukocytes, 2+ blood, and 2+ protein. Will place the patient on Augmentin. Supportive measures were discussed with the patient she voiced understanding discharge instructions and agrees to treatment plan. Differential Diagnosis Differential diagnosis: Likely urinary tract infection and cystitis Discharge Plan Discharge Clinical Impression: Urinary tract infection Qualifiers: Urinary tract infection type: acute cystitis Hematuria presence: with hematuria Qualified Code(s): N30.01 - Acute cystitis with hematuria Patient Disposition: Home, Self-Care Condition: Stable Instructions: Antibiotic Form, Urinary Tract Infection in Women (ED) Additional Instructions: UA shows a trace of bacteria, 2+ blood, 2+ protein. We will send urine for culture. Take Augmentin as prescribed Increase fluids and stay well hydrated
[2022-10-13 19:21] VITALS: BP 136/83; PULSE 86; RESP 14; TEMP 36.8; O2SAT 100
== END 2022-10-13 19:39 | disposition home or self-care (01) ==
PROVIDERS: Emergency Provider Nurse Practitioner Family; PCP Physician Assistant
DX: N30.01 Acute cystitis with hematuria (principal); E66.9 Obesity, unspecified; Z68.41 Body mass index [BMI] 40.0-44.9, adult
CPT/HCPCS: 81003; 87086; 87088; 99213; G0463

== ENCOUNTER 2022-10-15 23:26 | Emergency (ER) | payer OTHER, SELFPAY ==
--- NOTE | ~2022-10-15 | CT_ITS ---
EXAMINATION: CT abdomen pelvis w con INDICATION: Abdominal pain and diarrhea TECHNIQUE: Computed tomographic images of the abdomen and pelvis were obtained after the administrati on of 100 cc of Omnipaque 350 intravenous contrast. The dose-length product (DLP) was 1597.94 mGy-cm. Automated exposure control and iterative reconstruction technique were employed. COMPARISON: 05/24/2020 FINDINGS: Minimal dependent atelectasis is present in the lung bases. The heart size is normal. The l iver, spleen, pancreas, gallbladder, and adrenal glands are normal. The kidneys are unremarkable. The re is mild bilateral external iliac chain lymphadenopathy. An IUD is present in the uterus in expecte d position. No free intraperitoneal gas or evidence of bowel obstruction. There is a 3.5 cm cyst of t he left ovary. There is moderate lumbar spondylosis at L5-S1. A small umbilical hernia containing fat is noted. IMPRESSION: 1. No CT correlate for the patient's symptoms. 2. Mild pelvic lymphadenopathy of unclear etiology, possibly reactive, lymphoma would be a considerat ion. Follow-up is recommended. Reviewed, dictated and finalized at location A. IMPRESSION: 1. No CT correlate for the patient's symptoms. 2. Mild pelvic lymphadenopathy of unclear etiology, possibly reactive, lymphoma would be a consideration. Follow-up is recommended.
[2022-10-15 23:30] VITALS: BP 151/90; PULSE 88; RESP 16; TEMP 36.6; O2SAT 100
[2022-10-16 00:14] LABS: Basophils Percent Auto 0.3 % (0.2-1.2); Eosinophils Absolute Auto 0.1 K/mm3 (0-0.3); Eosinophils Percent Auto 0.8 % (0-4.4); Hematocrit 42.2 % (37.0-47.0); Hemoglobin 13.8 g/dL (12.0-15.0); Immature Granulocyte Absolute 0.06 K/mm3 (0.00-0.031); Immature Granulocyte Percent A 0.4 % (0-0.5); Lymphocytes Absolute Auto 2.33 K/mm3 (0.9-3.2); Lymphocytes Percent Auto 15.1 % (18.3-44.2); Mean Corpuscular HGB Conc 32.7 g/dl (32-36); Mean Corpuscular Hemoglobin 28.2 pg (26-34); Mean Corpuscular Volume 86.1 fl (80-100); Mean Platelet Volume 9.7 fl (7.4-10.4); Monocytes Absolute Auto 0.7 K/mm3 (0.1-0.6); Monocytes Percent Auto 4.5 % (2.6-8.5); Neutrophils Absolute Auto 12.2 K/mm3 (1.3-6.7); Neutrophils Percent Auto 78.9 % (45.5-73.1); Platelet Count Result 297 k/mm3 (150-375); Red Cell Distribution Width 14.1 % (11.5-14.5); White Blood Count 15.4 K/mm3 (4.5-10.0)
[2022-10-16 00:23] LABS: Alanine Aminotransferase 37 U/L (6-35); Albumin Level 4.6 g/dL (3.5-5.1); Alkaline Phosphatase 96 U/L (38-126); Anion Gap 8 mmol/L (8-16); Aspartate Amino Transferase 30 U/L (14-36); Bilirubin,Total 0.4 mg/dL (0.2-1.3); Blood Urea Nitrogen 19 mg/dL (7-17); Calcium 9.4 mg/dL (8.4-10.2); Carbon Dioxide 28 mmol/L (22-30); Chloride 104 mmol/L (98-107); Estimated CRCL calculation 140 ml/min; Estimated Glomerular Filt Rate > 60; Glucose 104 mg/dL (65-110); Lipase 71 U/L (23-300); Potassium 4.3 mmol/L (3.4-5.0); Sodium 140 mmol/L (137-145)
[2022-10-16 00:34] VITALS: PULSE 100; RESP 16; TEMP 37.7; O2SAT 99
[2022-10-16 00:50] LABS: Appearance Urine Clear (Clear); Bacteria Urine None Seen /hpf; Bilirubin Urine Negative (Negative); Blood Urine 3+ (Negative); Color Urine Yellow (Yellow); Glucose Urine UA Negative (Negative); Ketones Urine Negative (Negative); Leukocyte Esterase Ur Negative LEU/UL (Negative); Nitrate Urine Negative (Negative); Non Pathogenic Casts 0-2; Protein Urine Trace mg/dL (Negative); Specific Grav Ur 1.022 (1.001-1.035); Squamous Epithelial Cell Urine None seen /hpf (Few); Urobilinogen Urine 0.2 mg/dL (<2.0); WBC Urine 0-5 /hpf; pH Urine 5.5 (5.0-9.0)
[2022-10-16 00:54] LABS: Add Urine Microscopic? YES
--- NOTE | 2022-10-16 01:01 | ED.GENADULT ---
HPI - General Adult General Chief complaint: Abdominal Pain Stated complaint: abd pain Time Seen by Provider: 10/16/22 00:45 History of Present Illness HPI narrative: Patient 27-year-old female who presents the emergency department with chief complaint of abdominal pain and diarrhea. Patient reports that she recently had gastroenteritis with diarrhea and then was seen in urgent care over the weekend diagnosed with a UTI started on oral antibiotics and reports that she started having diarrhea that had a mucoid diarrhea. Patient reports that she has pain all throughout her abdomen the patient reports she had a low-grade fever at home Related Data Home Medications Medication Instructions Recorded Confirmed levonorgestrel 21 mcg/24 hours (8 1 insert intrauterine ONCE 12/31/20 03/15/22 yrs) 52 mg intrauterine device (Mirena) Allergies Allergy/AdvReac Type Severity Reaction Status Date / Time No Known Allergies Allergy Verified 10/15/22 23:33 Review of Systems Review of Systems: A 10 system review of systems was completed on the patient and is negative except for what is stated in the HPI. Nursing and ancillary documentation was reviewed. [facility] Past Medical History Medical History (Updated 10/16/22 @ 07:08 by Jeffrey Angeles MD) Gestational diabetes Obesity and not yet delivered in third trimester Surgical History Surgical History History of tonsillectomy Family History Family History Mother Hypertension Acid reflux Father Diabetes mellitus Social History Social History Smoking status: Never smoker Second hand tobacco smoke exposure: No Alcohol intake: never Substance use: never Gender identity (if verbalized by the patient): Female Spiritual care concerns: No Exam Narrative: GENERAL: Well-appearing, well-nourished, and in no acute distress. HEAD: Normocephalic, atraumatic. EYES: PERRLA and EOMI. ENT: Nares clear, no rhinorrhea or epistaxis. Mucous membranes moist. NECK: Supple. CHEST: Clear to auscultation. No respiratory distress. HEART: Regular rate and rhythm. No murmur heard. Normal peripheral pulses. ABDOMEN: Soft, diffusely tender to palpation, nondistended, normal active bowel sounds. EXTREMITIES: Normal range of motion. No edema. SKIN: Warm, dry, no rash. NEURO: No focal deficits. Alert and oriented x3. PSYCH: Normal mood and affect. Course Vital Signs Vital signs: Vital Signs Temperature 36.6 C 10/15/22 23:30 Pulse Rate 88 10/15/22 23:30 Respiratory Rate 16 10/15/22 23:30 Blood Pressure 151/90 H 10/15/22 23:30 Pulse Oximetry 100 10/15/22 23:30 Oxygen Delivery Room Air 10/15/22 23:30 Temperature 37.7 C H 10/16/22 00:34 Pulse Rate 82 10/16/22 05:14 Respiratory Rate 16 10/16/22 05:14 Blood Pressure 123/85 10/16/22 05:14 Pulse Oximetry 99 10/16/22 05:14 Oxygen Delivery Room Air 10/15/22 23:30 Medical Decision Making MDM Narrative Medical decision making narrative: Differential diagnosis includes colitis, diverticulitis, intra-abdominal infection/abscess, UTI Laboratory studies were obtained which showed a white blood cell count of 15.4 electrolytes are within normal limits lipase was 71 urinalysis showed 0-[address] scan of the abdomen pelvis showed no acute abnormalities other than some reactive lymphadenopathy that was concerning for either reactive disease or potential lymphoma. Vital Signs Vital Signs: Vital Signs Temperature 36.6 C 10/15/22 23:30 Pulse Rate 88 10/15/22 23:30 Respiratory Rate 16 10/15/22 23:30 Blood Pressure 151/90 H 10/15/22 23:30 Pulse Oximetry 100 10/15/22 23:30 Oxygen Delivery Room Air 10/15/22 23:30 Temperature 37.7 C H 10/16
[2022-10-16] MEDS: SODIUM CHLORIDE 0.9% IV 1,000 ML 999 ML IV CONT (01:25)
[2022-10-16] MEDS: DICYCLOMINE HCL INJ 20 MG/2 ML VIAL IM (01:27)
[2022-10-16] MEDS: ONDANSETRON INJ 4 MG/2 ML VIAL IV PUSH (01:27)
[2022-10-16 02:12] VITALS: BP 113/54; PULSE 78; RESP 15; O2SAT 100
[2022-10-16 03:46] VITALS: BP 111/79; PULSE 91; RESP 15; O2SAT 100
[2022-10-16 05:14] VITALS: BP 123/85; PULSE 82; RESP 16; O2SAT 99
[2022-10-16 07:21] VITALS: BP 127/65; PULSE 97; RESP 16; O2SAT 96
== END 2022-10-16 07:19 | disposition home or self-care (01) ==
PROVIDERS: Emergency Provider Emergency Medicine; PCP Physician Assistant
DX: K52.9 Noninfective gastroenteritis and colitis, unspecified (principal); R59.1 Generalized enlarged lymph nodes; E66.9 Obesity, unspecified; Z68.41 Body mass index [BMI] 40.0-44.9, adult
CPT/HCPCS: 36415; 74177; 80053; 81001; 81025; 83690; 85025; 87045; 87186; 87427; 96361; 96372; 96374; 99284; J0500; J2405; J7030; Q9967

== ENCOUNTER 2022-11-19 04:24 | Emergency (ER) | payer OTHER, SELFPAY ==
--- NOTE | ~2022-11-19 | CT_ITS ---
CT of the Abdomen and Pelvis: Indication: Abdominal pain Technique: 2.5 mm axial scans were obtained through the abdomen and pelvis following intravenous adm inistration of 100 cc of Omnipaque 350. Dose reduction technique was used on this scan by utilizing a utomated exposure control and iterative reconstruction technique. The dose-length product (DLP) was 1 551.70 mGy-cm. COMPARISON: 10/16/2022 Findings: Scans through the lung bases demonstrate minimal patchy opacities the right lung base, unc hanged. The liver, spleen, pancreas, gallbladder, adrenals and kidneys are within normal limits. No evidence of aortic aneurysm. There are mildly enlarged pelvic sidewall lymph nodes bilaterally, right worse t martins left. There are shotty retroperitoneal lymph nodes. Suspected mild diffuse large bowel wall thickening. No bowel obstruction. No abscess or free air. Images through the pelvis were performed. Urinary bladder unremarkable. No adnexal mass evident. IUD in place. No ascites. Impression: Suspected infectious/inflammatory pancolitis. Correlate clinically. Mild lymphadenopathy in the pelvis and retroperitoneum, as above. These nodes are presumably reactive . Lymphoma not completely excluded, though felt to be less likely. Minimal patchy opacities the right lung base are unchanged. Correlate for minimal atelectatic change, chronic post inflammatory change, or small airways infection. Reviewed, dictated and finalized at [facility]. Impression: Suspected infectious/inflammatory pancolitis. Correlate clinically. Mild lymphadenopathy in the pelvis and retroperitoneum, as above. These nodes a re presumably reactive. Lymphoma not completely excluded, though felt to be les s likely. Minimal patchy opacities the right lung base are unchanged. Correlate for minim al atelectatic change, chronic post inflammatory change, or small airways infec tion.
[2022-11-19 04:29] VITALS: BP 150/93; PULSE 94; RESP 16; TEMP 36.2; O2SAT 99
[2022-11-19 04:47] VITALS: BP 142/83; PULSE 96; RESP 16; O2SAT 97
--- NOTE | 2022-11-19 04:50 | ED.GENADULT ---
HPI - General Adult General Chief complaint: Abdominal Pain Stated complaint: abdominal pain Time Seen by Provider: 11/19/22 04:33 History of Present Illness HPI narrative: Patient a 27-year-old female who presents the emergency department complaint of abdominal pain. Patient reports that for the last several days she has had pain in the left side of her abdomen. The patient reports it radiates to her back reports that the pain is not improved by anything. The patient reports that she had diarrhea with this as well. Patient reports no abdominal surgery history Related Data Home Medications Medication Instructions Recorded Confirmed levonorgestrel 21 mcg/24 hours (8 1 insert intrauterine ONCE 12/31/20 03/15/22 yrs) 52 mg intrauterine device (Mirena) Allergies Allergy/AdvReac Type Severity Reaction Status Date / Time No Known Allergies Allergy Verified 11/19/22 04:36 Review of Systems Review of Systems: A 10 system review of systems was completed on the patient and is negative except for what is stated in the HPI. Nursing and ancillary documentation was reviewed. [facility] Past Medical History Medical History (Updated 11/19/22 @ 06:42 by Jeffrey Angeles MD) Gestational diabetes Obesity and not yet delivered in third trimester Surgical History Surgical History History of tonsillectomy Family History Family History Mother Hypertension Acid reflux Father Diabetes mellitus Social History Social History Smoking status: Never smoker Second hand tobacco smoke exposure: No Alcohol intake: never Substance use: never Gender identity (if verbalized by the patient): Female Spiritual care concerns: No Exam Narrative: GENERAL: Well-appearing, well-nourished, and in no acute distress. HEAD: Normocephalic, atraumatic. EYES: PERRLA and EOMI. ENT: Nares clear, no rhinorrhea or epistaxis. Mucous membranes moist. NECK: Supple. CHEST: Clear to auscultation. No respiratory distress. HEART: Regular rate and rhythm. No murmur heard. Normal peripheral pulses. ABDOMEN: Soft, tenderness to palpation in the left upper quadrant, nondistended, normal active bowel sounds. EXTREMITIES: Normal range of motion. No edema. SKIN: Warm, dry, no rash. NEURO: No focal deficits. Alert and oriented x3. PSYCH: Normal mood and affect. Course Vital Signs Vital signs: Vital Signs Temperature 36.2 C L 11/19/22 04:29 Pulse Rate 94 11/19/22 04:29 Respiratory Rate 16 11/19/22 04:29 Blood Pressure 150/93 H 11/19/22 04:29 Pulse Oximetry 99 11/19/22 04:29 Oxygen Delivery Room Air 11/19/22 04:29 Temperature 36.2 C L 11/19/22 04:29 Pulse Rate 96 11/19/22 04:47 Respiratory Rate 16 11/19/22 04:47 Blood Pressure 142/83 H 11/19/22 04:47 Pulse Oximetry 97 11/19/22 04:47 Oxygen Delivery Room Air 11/19/22 04:29 Medical Decision Making MDM Narrative Medical decision making narrative: Differential diagnosis colitis, diverticulitis, appendicitis, pancreatitis Laboratory studies were obtained and patient was a white count of 12.7 electrolytes are within normal limits urinalysis showed no evidence of UTI CT scan of the abdomen pelvis showed evidence of pancolitis Will be started on p.o. Cipro and p.o. Flagyl patient was given additional dose of pain medication and will be given a prescription for Altair Vital Signs Vital Signs: Vital Signs Temperature 36.2 C L 11/19/22 04:29 Pulse Rate 94 11/19/22 04:29 Respiratory Rate 16 11/19/22 04:29 Blood Pressure 150/93 H 11/19/22 04:29 Pulse Oximetry 99 11/19/22 04:29 Oxygen Delivery Room Air 11/19/22 04:29 Temperature 36.2 C L 11/19/22 04:29 Pulse Rate 96 11/19/22 04:47 Respiratory Rate 16
[2022-11-19] MEDS: SODIUM CHLORIDE 0.9% IV 1,000 ML 999 ML IV CONT (04:53)
[2022-11-19] MEDS: ONDANSETRON INJ 4 MG/2 ML VIAL IV PUSH (04:53)
[2022-11-19] MEDS: MORPHINE SULFATE (*CRX) 4 MG/ML INJ IV PUSH ×2 (04:56→06:47)
[2022-11-19 04:59] LABS: Basophils Percent Auto 0.3 % (0.2-1.2); Eosinophils Absolute Auto 0.1 K/mm3 (0-0.3); Eosinophils Percent Auto 0.6 % (0-4.4); Hematocrit 44.3 % (37.0-47.0); Hemoglobin 14.7 g/dL (12.0-15.0); Immature Granulocyte Absolute 0.04 K/mm3 (0.00-0.031); Immature Granulocyte Percent A 0.3 % (0-0.5); Lymphocytes Absolute Auto 1.74 K/mm3 (0.9-3.2); Lymphocytes Percent Auto 13.7 % (18.3-44.2); Mean Corpuscular HGB Conc 33.2 g/dl (32-36); Mean Corpuscular Hemoglobin 28.5 pg (26-34); Mean Platelet Volume 10.1 fl (7.4-10.4); Monocytes Absolute Auto 0.7 K/mm3 (0.1-0.6); Monocytes Percent Auto 5.7 % (2.6-8.5); Neutrophils Absolute Auto 10.1 K/mm3 (1.3-6.7); Neutrophils Percent Auto 79.4 % (45.5-73.1); Platelet Count Result 309 k/mm3 (150-375); Red Blood Count 5.15 M/mm3 (4.2-5.4); Red Cell Distribution Width 14.3 % (11.5-14.5); White Blood Count 12.7 K/mm3 (4.5-10.0)
[2022-11-19] MEDS: DICYCLOMINE HCL INJ 20 MG/2 ML VIAL IM (05:04)
[2022-11-19 05:12] LABS: Alanine Aminotransferase 49 U/L (6-35); Albumin Level 4.3 g/dL (3.5-5.1); Alkaline Phosphatase 92 U/L (38-126); Anion Gap 10 mmol/L (8-16); Aspartate Amino Transferase 33 U/L (14-36); Bilirubin,Total 0.4 mg/dL (0.2-1.3); Blood Urea Nitrogen 11 mg/dL (7-17); Calcium 8.8 mg/dL (8.4-10.2); Carbon Dioxide 25 mmol/L (22-30); Chloride 104 mmol/L (98-107); Estimated CRCL calculation 148 ml/min; Estimated Glomerular Filt Rate > 60; Glucose 110 mg/dL (65-110); Lipase 35 U/L (23-300); Sodium 139 mmol/L (137-145)
[2022-11-19 05:20] LABS: Appearance Urine Cloudy (Clear); Bacteria Urine 3+ /hpf; Bilirubin Urine 1+ (Negative); Blood Urine 3+ (Negative); Color Urine Dark Yellow (Yellow); Glucose Urine UA Negative (Negative); Ketones Urine 4+ mg/dL (Negative); Leukocyte Esterase Ur Negative LEU/UL (Negative); Nitrate Urine Negative (Negative); Non Pathogenic Casts 0-2; Protein Urine 2+ mg/dL (Negative); RBC Urine 51-100 /hpf (0-2); Squamous Epithelial Cell Urine Moderate /hpf (Few); WBC Urine 0-5 /hpf
[2022-11-19 05:35] LABS: Specific Grav Ur 1.039 (1.001-1.035)
[2022-11-19 05:36] LABS: Add Urine Microscopic? YES
[2022-11-19 06:43] VITALS: PULSE 77; RESP 18; O2SAT 99
[2022-11-19] MEDS: CIPROFLOXACIN 500 MG TAB PO (06:47)
[2022-11-19] MEDS: metroNIDAZOLE 250 MG TABLET 500 MG PO (06:47)
[2022-11-19 07:02] VITALS: BP 137/75; PULSE 87; RESP 16; O2SAT 100
== END 2022-11-19 07:03 | disposition home or self-care (01) ==
PROVIDERS: Emergency Provider Emergency Medicine; PCP Physician Assistant
DX: K52.9 Noninfective gastroenteritis and colitis, unspecified (principal)
CPT/HCPCS: 36415; 74177; 80053; 81001; 81025; 83690; 85025; 96361; 96372; 96374; 96375; 99284; A9270; J0500; J2270; J2405; J7030; Q9967

== ENCOUNTER 2023-05-03 18:20 | Emergency (ER) | payer OTHER, SELFPAY ==
[2023-05-03 18:42] VITALS: BP 138/103; PULSE 77; RESP 16; TEMP 37; O2SAT 99
--- NOTE | 2023-05-03 18:55 | ED.FEMALEGU ---
HPI - Female Genitourinary General Chief complaint: Urogenital-Female Stated complaint: urinary issue, left eye crusty Eye Source: patient and RN notes reviewed Mode of arrival: ambulatory Limitations: no limitations History of Present Illness HPI Narrative: 27-year-old female presented for complaint of 2 days of burning with urination and urinary frequency. Also reports left eye irritation with drainage and redness for about 5 days. States she has been waking with the eye crusted shut. Tested negative for COVID last week, as she and multiple family members had flu symptoms which are improving. denies photophobia, vision changes, headache, dizziness, nausea, vomiting, diarrhea, fevers or chills. Related Data Allergies Allergy/AdvReac Type Severity Reaction Status Date / Time No Known Allergies Allergy Verified 05/03/23 18:45 Review of Systems Review of Systems: CONSTITUTIONAL: Denies body aches, fever, chills, or sweats. CARDIOVASCULAR: Denies chest pain, palpitations, or edema. RESPIRATORY: Denies cough or dyspnea. GASTROINTESTINAL: Denies abdominal pain, nausea, vomiting, or diarrhea. GENITOURINARY: Reports dysuria, frequency, urgency, denies hematuria, flank pain SKIN: Denies rash, itching, or wounds. MUSCULOSKELETAL: Denies back pain or myalgia. [facility] Past Medical History Medical History Gestational diabetes Lymphadenopathy Obesity and not yet delivered in third trimester Surgical History Surgical History History of tonsillectomy Family History Family History Mother Hypertension Acid reflux Father Diabetes mellitus Social History Social History Smoking status: Never smoker Second hand tobacco smoke exposure: No Alcohol intake: never Substance use: never Gender identity (if verbalized by the patient): Female Spiritual care concerns: No Comments At time of signature, I have reviewed and agree with nursing past medical, surgical, social and family history unless otherwise noted. Please see nursing chart for further information. There is no relevant family history pertinent to the presenting complaint Exam Narrative: GENERAL: Well-appearing and in no acute distress. EYES: EOMI. Left conjunctival injection. No apparent drainage. No erythema or swelling to the eyelid PERRLA, lid eversion shows no foreign body ENT: Mucous membranes pink and moist. NECK: Normal AROM. Supple. CHEST: No respiratory distress. Clear to auscultation. HEART: Regular rate and rhythm. ABDOMEN: Soft, nontender, nondistended, normal active bowel sounds. No CVA tenderness NEURO: No focal deficits. Alert and oriented x3. Gait steady. Course Course Emergency Course: Patient is aware of diagnosis, understands and agrees to treatment plan. Anticipatory guidance given. Patient agrees to follow-up as directed and is aware of reasons to seek care at the emergency department. Portions of this record may have been created with voice recognition software Level of Care: Express Care Visit Vital Signs Vital signs: Vital Signs Temperature 98.6 F 05/03/23 18:42 Pulse Rate 77 05/03/23 18:42 Respiratory Rate 16 05/03/23 18:42 Blood Pressure 138/103 H 05/03/23 18:42 Pulse Oximetry 99 05/03/23 18:42 Oxygen Delivery Room Air 05/03/23 18:42 Temperature 98.6 F 05/03/23 18:42 Pulse Rate 77 05/03/23 18:42 Respiratory Rate 16 05/03/23 18:42 Blood Pressure 138/103 H 05/03/23 18:42 Pulse Oximetry 99 05/03/23 18:42 Oxygen Delivery Room Air 05/03/23 18:42 Reviewed MDM - Female Genitourinary MDM Narrative Medical decision making narrative: discussed physical exam findings and urine results. Discussed physical exam findings. Advised supp
== END 2023-05-03 19:12 | disposition home or self-care (01) ==
PROVIDERS: Emergency Provider Nurse Practitioner Family; PCP Physician Assistant
DX: N39.0 Urinary tract infection, site not specified (principal); H10.9 Unspecified conjunctivitis; E66.9 Obesity, unspecified; Z68.41 Body mass index [BMI] 40.0-44.9, adult
CPT/HCPCS: 81003; 87086; 87088; 99213; G0463